=== PATIENT | female | born 1995 | race Caucasian/White ===

== ENCOUNTER 2021-06-15 08:03 | Inpatient (IN) ==
[2021-06-15] MEDS ORDERED: Famotidine 20 MG/2 ML VIAL IVP PRN (08:12)
[2021-06-15] MEDS ORDERED: Ondansetron 4 MG/2 ML VIAL IVP PRN (08:12)
[2021-06-15] MEDS ORDERED: Naloxone 0.4 MG/ML INJ IVP PRN (08:12)
[2021-06-15] MEDS ORDERED: *HR* Nalbuphine 10 MG/ML AMPUL IV PRN (08:12)
[2021-06-15] MEDS ORDERED: Metoclopramide 10 MG/2 ML VIAL IVP PRN (08:12)
[2021-06-15] MEDS ORDERED: miSOPROStoL 25 MCG TABLET PO ONE (08:15)
[2021-06-15] MEDS ORDERED: Ringers Solution, Lactated 1,000 ML IVC SCH (08:15)
[2021-06-15 09:23] LABS: Basophils % 0.4 %; Eosinophils # 0.1 K/mcL (0.0-0.6); Eosinophils % 0.6 %; Hematocrit 36.2 % (35.3-44.9); Hemoglobin 11.9 g/dL (11.5-15.4); Lymphocytes # 1.6 K/mcL (0.6-4.6); Lymphocytes % 19.6 %; Mean Corpuscular HGB Conc 32.9 g/dL (31.6-35.5); Mean Corpuscular Hemoglobin 29.2 pg (28.0-33.3); Mean Corpuscular Volume 88.7 fL (83.0-100.0); Mean Platelet Volume 10.4 fL (9.4-12.4); Monocytes # 0.8 K/mcL (0.0-1.3); Monocytes % 9.1 %; Neutrophils # 5.7 K/mcL (1.6-8.9); Platelet Count 245 K/mcL (140-400); Red Blood Count 4.08 M/mcL (3.82-4.97); Red Cell Distribution Width 12.9 % (11.5-14.5); Segmented Neutrophils % 69.3 %; White Blood Count 8.2 K/mcL (4.3-11.1)
[2021-06-15 10:03] LABS: Influenza A PCR Negative (Negative); Influenza B PCR Negative (Negative); Resp. Syncytial Virus PCR Negative (Negative)
[2021-06-15 10:04] LABS: SARS-CoV-2 by PCR (In House) Negative (Negative)
[2021-06-15] MEDS ORDERED: Oxytocin 30 UNIT/503 ML BAG IVC SCH (10:15)
[2021-06-15] MEDS ORDERED: EPHEDrine 50 MG/ML VIAL IVP PRN (13:03)
[2021-06-15 13:13] LABS: Amphetamine Screen,Urine Negative ng/mL (Cutoff=1000); Barbiturate Screen,Urine Negative ng/mL (Cutoff=200); Benzodiazepines Screen,Urine Negative ng/mL (Cutoff=200); Cannabinoid Screen,Urine Negative ng/mL (Cutoff = 50); Cocaine Screen,Urine Negative ng/mL (Cutoff= 300); Opiate Screen,Urine Negative ng/mL (Cutoff=300); Phencyclidine Screen,Urine Negative ng/mL (Cutoff=25)
[2021-06-15] MEDS ORDERED: Epidural Premix (fent/bupiv) 110 ML EP SCH (13:15)
[2021-06-16] MEDS ORDERED: Ondansetron ODT 4 MG TAB.RAPDIS SL PRN (02:36)
[2021-06-16] MEDS ORDERED: Rho Immune Globulin 1,500 UNIT SYRINGE IM PRN (02:36)
[2021-06-16] MEDS ORDERED: Lanolin 7 G OINT...G. TP PRN (02:36)
[2021-06-16] MEDS ORDERED: Measles/Mumps/Rubella Vacc 0.5 ML VIAL SQ PRN (02:36)
[2021-06-16] MEDS ORDERED: Oxytocin 30 UNIT/503 ML BAG IVC SCH (02:36)
[2021-06-16] MEDS ORDERED: Benzocaine/Menthol 56 GM AEROSOL SPRAY TP PRN (02:36)
[2021-06-16] MEDS ORDERED: OXYTOCIN/RINGERS LACTATE 10 UNIT/166.6 ML BAG IVC ONE (02:36)
[2021-06-16] MEDS: Acetaminophen 325 MG TABLET PO SCH ×3 (03:49→21:30)
[2021-06-16] MEDS: Ibuprofen 600 MG TABLET PO SCH ×3 (03:49→21:30)
[2021-06-16] MEDS: Prenatal Vit/FA 1 EACH TABLET PO SCH (09:29)
[2021-06-16 21:17] VITALS: O2SAT 98
[2021-06-17] MEDS: Ibuprofen 600 MG TABLET PO SCH (06:43)
[2021-06-17] MEDS: Acetaminophen 325 MG TABLET PO SCH (06:45)
[2021-06-17 07:26] VITALS: BP 110/73; PULSE 96; TEMP 98
[2021-06-17] MEDS: Prenatal Vit/FA 1 EACH TABLET PO SCH (08:07)
== END 2021-06-17 14:46 | disposition home or self-care (01) | DRG 807 ==
LOC: 1NENULAB 08:03 → 1NENUOBS 06-16 02:41
PROVIDERS: ADMIT Obstetrics & Gynecology; ATTEND Obstetrics & Gynecology